=== PATIENT | male | born 1990 | race Two or more races ===

== ENCOUNTER 2018-07-26 08:48 | Emergency (ER) | payer SELFPAY ==
[~2018-07-26] VITALS: Ht 180.3 cm; Wt 72.6 kg
[2018-07-26 08:53] VITALS: BP 135/81
== END 2018-07-26 09:15 ==
LOC: ER 08:50
DX: Z04.1 Encounter for examination and observation following transport accident (principal); V43.62XA Car passenger injured in collision with other type car in traffic accident, initial encounter; Y93.89 Activity, other specified; Y99.8 Other external cause status; Y92.410 Unspecified street and highway as the place of occurrence of the external cause